=== PATIENT | male | born 1945 | race Two or more races ===

== ENCOUNTER 2021-05-07 11:00 | Day surgery (SDC) | payer MEDICARE ==
[~2021-05-07] VITALS: Ht 172.7 cm; Wt 112.6 kg
[2021-05-07] VITALS (11 sets, daily range): BP systolic 121–167; BP diastolic 77–115
[~2021-05-07 11:00] MED LIST: DILT-91 PO; HYDR-3972 PO; LOSA100T57 PO; METF-438 PO; WARF4TAB9 PO
[2021-05-07] MEDS ORDERED: ACET-1008 PO (14:10)
[2021-05-07] MEDS ORDERED: PIOG45TA5 PO (14:10)
[2021-05-07] MEDS ORDERED: DAPA10TA PO (14:10)
[2021-05-07] MEDS ORDERED: VITA-268 PO (14:10)
[2021-05-07] MEDS ORDERED: DILT-88 PO (14:10)
[2021-05-07] MEDS ORDERED: CHOL200012 PO (14:10)
[2021-05-07] MEDS ORDERED: FENO145T26 PO (14:10)
[2021-05-07] MEDS ORDERED: midazolam 1 mg/ML 2ml injection ONE ×2 (14:37→15:06)
[2021-05-07] MEDS ORDERED: fentaNYL/PF 50MCG/1 ML 2ML syringe ONE ×2 (14:38→15:06)
[2021-05-07] MEDS ORDERED: gelatin sponge, absorbable (Gelfoam 12-7MM) sponge TP ONE (15:12)
== END 2021-05-07 16:40 | disposition home or self-care (01) ==
LOC: SSTAY O 11:00
PROVIDERS: ATTEND Preventive Medicine Aerospace Medicine
DX: R19.09 Other intra-abdominal and pelvic swelling, mass and lump (principal); E11.9 Type 2 diabetes mellitus without complications; I48.91 Unspecified atrial fibrillation; Z79.899 Other long term (current) drug therapy; Z79.84 Long term (current) use of oral hypoglycemic drugs; Z79.01 Long term (current) use of anticoagulants
CPT/HCPCS: 36415; 49180; 77012; 85610; 88184; 88185; 99152; 99153; J2250; J3010

== ENCOUNTER 2023-11-08 12:28 | Emergency (ER) | payer MEDICARE ==
[~2023-11-08] VITALS: Ht 172.7 cm; Wt 117.0 kg
[~2023-11-08 12:28] MED LIST changes: +ACET-1008 PO; +CHOL200012 PO; +DAPA10TA PO; +DILT-88 PO; -DILT-91 PO; +FENO145T26 PO; -HYDR-3972 PO; -LOSA100T57 PO; +LOSA100T58 PO; +PIOG45TA5 PO; +VITA-268 PO
[2023-11-08] MEDS: fluorescein sod 1mg ophthalmic strip LEFTEYE ONE (13:25)
[2023-11-08] MEDS: proparacaine 0.5% ophthalmic drops 15ml EACHEYE ONE (13:25)
[2023-11-08] MEDS ORDERED: VALA100031 PO (15:55)
[2023-11-08 16:00] VITALS: BP 130/70; PULSE 70; RESP 18; TEMP 97.9; O2SAT 99
== END 2023-11-08 16:02 | disposition home or self-care (01) ==
LOC: ER 12:29
DX: B02.9 Zoster without complications (principal); I10 Essential (primary) hypertension; E11.9 Type 2 diabetes mellitus without complications; I48.91 Unspecified atrial fibrillation
CPT/HCPCS: 99283